=== PATIENT | male | born 1960 | race Caucasian/White ===

== ENCOUNTER 2023-03-09 08:38 | Inpatient (IN) | payer BC, SELFPAY ==
[2023-03-09] VITALS (119 sets, daily range): BP systolic 79–144; BP diastolic 54–100; PULSE 81–171; RESP 14–24; TEMP 36.9–37; O2SAT 89–98; BMI 28.7
--- NOTE | 2023-03-09 08:50 | XR_ITS ---
WS: [id number] XR chest 1V portable [id number] REASON FOR EXAM: cp FINDINGS: The heart and the mediastinum are within normal limits. There is calcified granulomatous disease in both hemithoraces. There is no acute or subacute pulmonary parenchymal or pleural process is present. The bony thorax is intact with mild degenerative spondylosis in the mid and lower thoracic spine. XR/XR chest 1V portable [id number] IMPRESSION: No acute chest abnormality.
--- NOTE | 2023-03-09 08:50 | ECG_ITS ---
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 Measurements Intervals [place] Rate: 150 P: 0 TN: 0 QRS: 63 QRSD: 82 T: 55 QT: 294 QTc: 464 Interpretive Statements ATRIAL FIBRILLATION WITH RAPID VENTRICULAR RESPONSE NONSPECIFIC ST & T-WAVE ABNORMALITY No previous ECG available for comparison Electronically Signed On 03-09-2023 12:13:57 CDT by Dean Castaneda M.D. [id number]
--- NOTE | 2023-03-09 08:59 | W.ED.ARRPALP ---
HPI - Arrhythmia/Palpitations General: Chief Complaint: Arrhythmia/Palpitations Stated Complaint: afib with rvr Time Seen by Provider: 03/09/23 08:40 Source: patient and EMS Mode of arrival: EMS Limitations: no limitations History of Present Illness: 62-year-old male states that he has been on alcohol binge. He states he is drinking very heavily over the last 2 weeks. States that today he started having fluttering he has had a history of A-fib in the past when he has been drinking his heart rate here is 170 he did receive 20 mg of Cardizem in route he states his last drink was 4 hours ago he had some slight chest pain denies any fevers. Associated symptoms: Deny nausea or vomiting Review of Systems Const: Denies: fever(s), chills, body aches or change in appetite Eyes: Denies: blurry vision or eye discomfort ENMT: Denies: throat pain or dental pain Card: Reports: chest pain, palpitations and irregular heart rhythm Resp: Denies: dyspnea GI: Denies: abdominal pain, nausea, vomiting or diarrhea Musc: Denies: neck pain or back pain Skin/Breast: Denies: rash Neuro: Denies: headache(s) Physical Exam Const: COMMON NORMALS: patient oriented x3 GENERAL APPEARANCE: ill appearing HENMT: COMMON NORMALS: normocephalic and atraumatic HEAD & SCALP: normocephalic and atraumatic Eye: COMMON NORMALS: Equal, round and reactive pupils present and EOMs intact bilaterally PUPIL: Yes Equal, round and reactive pupils present Neck/C-Spine: COMMON NORMALS: full ROM and supple Chest: COMMONS NORMALS: normal inspection of the chest and normal palpation of entire chest wall Resp: COMMON NORMALS: normal respiratory effort, No retractions, No use of accessory muscles and clear to auscultation bilaterally AUSCULTATION: clear to auscultation bilaterally Cardio: COMMON NORMALS: No murmurs present (Cardio) RATE: tachycardic RHYTHM: abnormal rhythm irregularly irregular GI: COMMON NORMALS: Normal to inspection, nondistended, normoactive bowel sounds present, Soft to palpation, non-tender and no masses PALPATION: Yes Soft to palpation Extremity: COMMON NORMALS: normal to inspection and full ROM Neuro: COMMON NORMALS: patient oriented x3, moves all extremities and no focal motor deficits Psych: COMMON NORMALS: mental status grossly normal, Normal thought process present and cooperative THOUGHT PROCESS: Normal thought process present Skin: COMMON NORMALS: no rashes or lesions noted and no wounds GENERAL SKIN EXAM: no rashes or lesions noted Course Vital Signs: Vital signs: Vital Signs Temperature 98.6 F 03/09/23 08:40 Pulse Rate 150 H 03/09/23 09:21 Respiratory Rate 19 H 03/09/23 09:21 Blood Pressure 144/100 03/09/23 09:21 Pulse Oximetry 97 03/09/23 09:21 Oxygen Delivery Me thod Room Air 03/09/23 09:21 MDM - Arrhythmia/Palpitations Medical Decision Making Patient presents here with A-fib with RVR likely from holiday heart and alcohol withdrawal he has been on a 8-day binge he does have a history of alcoholism as well did give him Ativan along with Cardizem he is on a Cardizem drip will admit to the ICU Medical Records I reviewed the patient's medical records. Lab Data I reviewed the patient's lab results. 03/09/23 08:50 03/09/23 08:50 Radiology Impressions Chest X-Ray 03/09/23 08:50 IMPRESSION: No acute chest abnormality. Laboratory Results WBC 15.6 10^3/uL (4.0-10.0) H 03/09/23 08:50 RBC 4.80 10^6/uL (4.1-5.3) 03/09/23 08:50 Hgb 14.6 g/dL (11.7-16.6) 03/09/23 08:50 Hct 42.7 % (42.0-52.0) 03/09/23 08:50 MCV 89.0 fl (80-94) 03/09/23 08:50 MCH 30.4 pg (28.0-34.0) 03/09/23 08:50 MCHC 34.2 g/dL (30.0-36.0) 03/09/23 08:50 RDW 13.4 % (12.1-15.1) 03/09/23 08:50 Plt Count 253 10^3/cmm (130-400) 03/09/23 08:50 MPV 9.9 fL (7.4-10.4) 03/09/23 08:50 Neut % (Auto) 75.0 % 03/09/23 08:50 Lymph % (Auto) 15.0 % 03/09/23 08:50 [place] % (Auto) 9.3 % 03/09/23 08:50 Eos % (Auto) 0.0 % 03/09/23 08:50 Baso % (Auto) 0.3 % 03/09/23 08:50 Neut # (Auto) 11.72 10^3/uL (1.8-7.7) H 03/09/23 08:50 Lymph # (Auto) 2.3 10^3/uL (0.8-4.8) 03/09/23 08:50 [place] # (Auto) 1.5 10^3/uL (0.2-0.9) H 03/09/23 08:50 Eos # (Auto) 0.0 10^3/uL (0.0-0.8) 03/09/23 08:50 Baso # (Auto) 0.1 10^3/uL (0.0-0.1) 03/09/23 08:50 Nucleated RBC % (auto) 0 % 03/09/23 08:50 Nucleated RBCs # 0.0 /100WBC 03/09/23 08:50 PT 13.70 SECONDS (12.1-14.9) 03/09/23 08:50 INR 1.02 (0.8-1.2) 03/09/23 08:50 Sodium 138 mmol/L (136-145) 03/09/23 08:50 Potassium 3.7 mmol/L (3.5-5.1) 03/09/23 08:50 Chloride 96 mmol/L (98-107) L 03/09/23 08:50 Carbon Dioxide 27 mmol/L (22-29) 03/09/23 08:50 Anion Gap 18.7 (5-19) 03/09/23 08:50 BUN 7 mg/dL (8-23) L 03/09/23 08:50 Creatinine 1.5 mg/dL (0.7-1.2) H 03/09/23 08:50 GFR Calculation 47.3 mL/min (90-130) L 03/09/23 08:50 Glucose 150 mg/dL (65-115) H 03/09/23 08:50 Calculated Osmolality 287 mOsm/kg (285-295) 03/09/23 08:50 Calcium 9.0 mg/dL (8.5-10.5) 03/09/23 08:50 Total Bilirubin 0.4 mg/dL (0.15-1.2) 03/09/23 08:50 AST 35 U/L (0-40) 03/09/23 08:50 ALT 21 U/L (0-41) 03/09/23 08:50 Alkaline Phosphatase 66 U/L (40-130) 03/09/23 08:50 Troponin T Baseline 28 ng/L (0-15) H 03/09/23 08:50 Total Protein 7.3 g/dL (6.6-8.7) 03/09/23 08:50 Albumin 4.4 g/dL (3.5-5.2) 03/09/23 08:50 Globulin 2.9 g/dL (1.3-4.6) 03/09/23 08:50 Ethyl Alcohol < 10 mg/dL (0-10) 03/09/23 08:50 EKG Data EKG 1: I personally reviewed and interpreted this EKG as follows: EKG interpretation date: 03/09/23 EKG interpretation time: 09:06 Interpretation: afib with rvr hr [address] or t wave abnormalities qrs 82 qtc 379 Other EKG comments: Chest X-Ray 03/09/23 08:50 IMPRESSION: No acute chest abnormality. Critical Care Time Critical Care Time: Critical Care Time: Yes Total Critical Care Time: 45 Attestation: The high probability of a clinically significant, sudden or life threatening deterioration of the patient's cv system(s) required my full and direct attention, intervention and personal management. The critical care time is as shown. This time is in addition to time spent performing any reported procedures but includes the following: [x] Data and vital sign review and interpretation [x] Patient assessment, examination and intervention [x] Documentation [x] Medication orders and management Discharge Plan Discharge Patient Disposition: Admitted As Inpatient Admit Provider: Micah Skelton Clinical Impression: Atrial fibrillation with RVR, Alcohol withdrawal Condition: Stable Coding Level of Care Code ED Rental Manager for Chg Taty
[2023-03-09] MEDS: sodium chloride 0.9% 1,000 ML 999 ML IV ×2 (09:02→09:03)
[2023-03-09] MEDS: dilTIAZem 5 mg/mL SDV 5 mL 10 MG IVP (09:04)
[2023-03-09 09:10] LABS: Basophils # 0.1 10^3/uL (0.0-0.1); Basophils % 0.3 %; Hematocrit 42.7 % (42.0-52.0); Hemoglobin 14.6 g/dL (11.7-16.6); Lymphocytes # 2.3 10^3/uL (0.8-4.8); Mean Corpuscular HGB Conc 34.2 g/dL (30.0-36.0); Mean Corpuscular Hemoglobin 30.4 pg (28.0-34.0); Mean Platelet Volume 9.9 fL (7.4-10.4); Monocytes # 1.5 10^3/uL (0.2-0.9); Monocytes % 9.3 %; Neutrophils # 11.72 10^3/uL (1.8-7.7); Nucleated Red Blood Cells % 0 %; Platelet Count 253 10^3/cmm (130-400); Red Cell Distribution Width 13.4 % (12.1-15.1); White Blood Count 15.6 10^3/uL (4.0-10.0)
[2023-03-09] MEDS: LORazepam 2 mg/mL INJ 1 mL 1 MG IVP (09:15)
[2023-03-09] MEDS: multivitamin therapeutic Tablet 1 TAB PO (09:16)
[2023-03-09] MEDS: dilTIAZem 100 MG in sodium chloride 0.9% (add-van) 100 ML IV ×2 (09:20→18:19)
[2023-03-09 09:26] LABS: INR 1.02 (0.8-1.2)
[2023-03-09 09:32] LABS: Troponin(5th) Baseline 28 ng/L (0-15)
[2023-03-09 09:35] LABS: Alanine Aminotransferase 21 U/L (0-41); Albumin Level 4.4 g/dL (3.5-5.2); Alkaline Phosphatase 66 U/L (40-130); Aspartate Amino Transferase 35 U/L (0-40); Blood Urea Nitrogen 7 mg/dL (8-23); Carbon Dioxide 27 mmol/L (22-29); Chloride 96 mmol/L (98-107); Globulin 2.9 g/dL (1.3-4.6); Glomerular Filtration Rate 47.3 mL/min (90-130); Glucose 150 mg/dL (65-115); Osmolality Calculated 287 mOsm/kg (285-295); Sodium 138 mmol/L (136-145); Total Bilirubin 0.4 mg/dL (0.15-1.2); Total Protein 7.3 g/dL (6.6-8.7)
[2023-03-09 09:43] LABS: Alcohol Level < 10 mg/dL (0-10); Anion Gap 18.7 (5-19); Potassium 3.7 mmol/L (3.5-5.1)
[2023-03-09] MEDS: LORazepam 2 mg/mL INJ 1 mL IVP (09:46)
[2023-03-09 10:20] LABS: Thyroid Stimulating Hormone 1.49 uIU/mL (0.27-4.20)
--- NOTE | 2023-03-09 10:20 | P.HP_ITS ---
Providers/Chief Complaint Admitting Physician: Micah Skelton MD Chief Complaint: afib with rvr History of Present Illness Fausto Richard is a 62 year old male presenting to the hospital with complaints of palpitations. He reports he is an alcoholic and has been drinking heavily lately. Last drink not long ago, typically vodka. He has a past history of atrial fibrillation, for which she is on sotalol. He reports he had not had an issue with it for long enough that he had been taken off his Eliquis. He does take an aspirin daily. He denies any blood in his stool or black tarry stools. He denies any chest discomfort. He reports he typically withdraws significantly from alcohol and is currently having hallucinations of a body dissolving when he closes his eyes. No recent fever or illnesses. He did have one episode of vomiting with his withdrawal. In the emergency department, he has received Cardizem bolus, and a Cardizem drip at 15 mg an hour. Heart rate is fluctuating between 1 40-1 90. Review of Systems General: Reports: 10 or more systems reviewed and unremarkable except in HPI and below Card: Reports: palpitations; Denies: chest pain Resp: Denies: dyspnea GI: Reports: nausea and vomiting; Denies: abdominal pain, hematemesis, hematochezia or melena Medications/Allergies Home Medications Medication Instructions Recorded Confirmed Last Taken Type aspirin 81 mg tablet,delayed 81 mg PO DAILY 03/09/23 03/09/23 Unknown History release cholecalciferol (vitamin D3) 25 25 mcg PO DAILY 03/09/23 03/09/23 Unknown History mcg (1,000 unit) chewable tablet (Vitamin D3) sotalol 80 mg tablet 80 mg PO DAILY 03/09/23 03/09/23 Unknown History vitamin E 268 mg (400 unit) capsule 268 mg PO DAILY 03/09/23 03/09/23 Unknown History Allergies Allergy/AdvReac Type Severity Reaction Status Date / Time No Known Allergies Allergy Unverified 03/09/23 10:20 PFSH Acute PFSH: Medical History (Updated 03/09/23 @ 10:26 by Micah Skelton MD) Alcoholism Atrial fibrillation Family History (Updated 03/09/23 @ 10:23 by Micah Skelton MD) Other Cancer Social History (Updated 03/09/23 @ 10:24 by Micah Skelton MD) Smoking and tobacco status: former smoker Alcohol intake: current Other [facility] information: Supplemental [facility] Information: Denies any surgeries Vitals/I&O/Wt Last Vital Signs Temp 98.6 F 03/09/23 08:40 Pulse 150 H 03/09/23 09:21 Resp 19 H 03/09/23 09:21 BP 144/100 03/09/23 09:21 Pulse Ox 97 03/09/23 09:21 O2 Del Method Room Air 03/09/23 09:21 03/08/23 03/09/23 03/09/23 22:59 06:59 14:59 Intake Total Balance Weight last 48 hrs Weight 90.718 kg Physical Exam Narrative: General exam demonstrates a tremulous white male, in no distress, conversant HEENT: Atraumatic and normocephalic. Oropharynx clear. Neck is supple no lymphadenopathy thyromegaly Cardiovascular irregular, irregular with accelerated rate. No murmur Lungs clear no wheezing or crackles Abdomen is soft, positive bowel sounds. No obvious organomegaly exam is deferred Extremities no cyanosis clubbing or edema, cap refill brisk Skin no rash Neuro no obvious focal deficits Data 03/09/23 08:50 03/09/23 08:50 Other Labs: EKG demonstrates atrial fibrillation with rapid ventricular rate, nonspecific ST-T wave changes. This is my reading personally. Chest x-ray which I reviewed demonstrates no infiltrate INR is normal LFTs are normal Troponin 28 initially Calcium, albumin normal I have ordered a TSH and magnesium level which were both normal Alcohol level less than 10 A&P Assessment and plan (1) Atrial fibrillation with RVR: Patient presents with atrial fibrillation with rapid ventricular rate. It is entirely possible this may be driven from his recent heavy alcohol intake and withdrawal He has been initiated on a Cardizem drip TSH and magnesium are normal, along with the rest of his electrolytes Continue Cardizem drip Treat his alcohol withdrawal, to see if heart rate lessens Consider other measures such as a dose of metoprolol IV, reinitiation of sotalol with higher dosage, or other treatments if heart rate does not decrease with treatment of alcohol withdrawal Full dose anticoagulation currently (2) Alcohol withdrawal: Significant tachycardia and hypertension and is tremulous patient with current delirium/hallucinations. High risk for worsening. Initiate CIWA protocol Add Precedex Thiamine, folate Ativan as needed Offer rehabilitation services (3) Acute kidney injury: Some degree of acute kidney injury currently Hydration Repeat creatinine tomorrow (4) Hyperglycemia: Check hemoglobin A1c Plan Other medical problems as outlined in past medical history Full code Lovenox will suffice for DVT prophylaxis Protonix for GI prophylaxis Attestations Medical Necessity Statement*: Will require greater than 2 midnight stay for evaluation and treatment of acute alcohol withdrawal with atrial fibrillation with rapid ventricular rate. Critical Care Time: The high probability of a clinically significant, sudden or life threatening deterioration of the patient's [cardiac, metabolic] system(s) required my full and direct attention, intervention and personal management. The critical care time is as shown. This time is in addition to time spent performing any reported procedures but includes the following: [x] Data and vital sign review and interpretation [x] Patient assessment, examination and intervention [x] Documentation [x] Medication orders and management Critical Care Time (min): 49 Coding Level of Care Code Critical Care >/= 30 minutes Critical care time (in minutes): 49 The high probability of a clinically significant, sudden or life threatening deterioration, as referenced in this documentation, required my full and direct attention, intervention and personal management. The critical care time shown is in addition to time spent performing any reported separately billable procedures and includes the following: [x] Data and vital sign review and interpretation [x ] Patient assessment, examination and intervention [x] Medication orders and management [x] Patient/Family updates as able [x] Care Coordination and Documentation. Diagnoses Atrial fibrillation with RVR I48.91 Alcohol withdrawal F10.939 Acute kidney injury N17.9 Hyperglycemia R73.9
[2023-03-09] MEDS: sodium chloride 0.9% 1,000 ML 100 ML IV ×2 (10:50→20:56)
[2023-03-09] MEDS: pantoprazole 40 mg SDV IVP (10:50)
[2023-03-09] MEDS: enoxaparin 100 mg/mL Syringe 90 MG SUBCUT ×2 (10:50→23:01)
[2023-03-09] MEDS: dexmedetomidine 400 MCG in sodium chloride 0.9% (100 ml) 100 ML IV (11:06)
[2023-03-09 11:28] LABS: Estmated Average Glucose 123; Hemoglobin A1C 5.9 % (4.0-6.0)
--- NOTE | 2023-03-09 12:22 | ECG_ITS ---
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 Measurements Intervals [place] Rate: 130 P: 0 OK: 0 QRS: 40 QRSD: 87 T: -28 QT: 312 QTc: 459 Interpretive Statements ATRIAL FIBRILLATION WITH RAPID VENTRICULAR RESPONSE NONSPECIFIC T-WAVE ABNORMALITY Compared to ECG 03/09/2023 09:06:13 No significant changes Electronically Signed On 03-09-2023 12:23:14 CDT by Dena Castaneda M.D. [id number]
[2023-03-09 15:37] LABS: Troponin 5 6HR 21.98 ng/L (0-15)
--- NOTE | 2023-03-09 15:38 | ECG_ITS ---
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 Measurements Intervals [place] Rate: 114 P: 0 OK: 0 QRS: 41 QRSD: 104 T: -14 QT: 305 QTc: 422 Interpretive Statements ATRIAL FIBRILLATION WITH RAPID VENTRICULAR RESPONSE NONSPECIFIC T-WAVE ABNORMALITY Compared to ECG 03/09/2023 12:22:48 No significant changes Electronically Signed On 03-09-2023 15:50:45 CDT by Dean Castaneda M.D. [id number]
[2023-03-09 15:40] LABS: Troponin 5 6HR Delta -6.02 ng/L (0-12)
[2023-03-09] MEDS: sotalol 80 mg Tablet PO (17:13)
--- NOTE | 2023-03-09 21:20 | PC.NURSE ---
Pr is requesting food. Spoke to Dr. Parker about diet order. New order to advance diet as tolerated.
[2023-03-10] VITALS (93 sets, daily range): BP systolic 73–152; BP diastolic 36–104; PULSE 86–119; RESP 9–29; TEMP 36.4–37; O2SAT 82–99; BMI 30.9
[2023-03-10] MEDS: dexmedetomidine 400 MCG in sodium chloride 0.9% (100 ml) 100 ML 9.44 MCG IV (01:17)
[2023-03-10 04:59] LABS: Basophils % 0.3 %; Eosinophils # 0.1 10^3/uL (0.0-0.8); Hematocrit 34.2 % (42.0-52.0); Hemoglobin 10.8 g/dL (11.7-16.6); Lymphocytes # 2.4 10^3/uL (0.8-4.8); Lymphocytes % 39.1 %; Mean Corpuscular HGB Conc 31.6 g/dL (30.0-36.0); Mean Corpuscular Hemoglobin 29.8 pg (28.0-34.0); Mean Corpuscular Volume 94.5 fl (80-94); Mean Platelet Volume 10.3 fL (7.4-10.4); Monocytes # 0.5 10^3/uL (0.2-0.9); Monocytes % 8.4 %; Neutrophils # 3.09 10^3/uL (1.8-7.7); Nucleated Red Blood Cells % 0 %; Platelet Count 164 10^3/cmm (130-400); Red Blood Count 3.62 10^6/uL (4.1-5.3); Red Cell Distribution Width 14.1 % (12.1-15.1); White Blood Count 6.1 10^3/uL (4.0-10.0)
--- NOTE | 2023-03-10 05:03 | PC.NURSE ---
Addendum entered by Delmy Calixto RN 03/10/23 05:43: Spoke to Dr. Parker on phone about 80mg Sotalol. Order to not give 80mg Sotalol and pass along to dayshift. Original Note: Low BP's: Spoke to Dr. Parker via secured messaging about 80mg Sotalol ordered for 529. Updated Dr. Parker on current vitals, including low BP's. No new orders at this time.
[2023-03-10 05:28] LABS: Alanine Aminotransferase 15 U/L (0-41); Albumin Level 3.2 g/dL (3.5-5.2); Alkaline Phosphatase 46 U/L (40-130); Anion Gap 11.9 (5-19); Aspartate Amino Transferase 20 U/L (0-40); Blood Urea Nitrogen 7 mg/dL (8-23); Calcium 7.9 mg/dL (8.5-10.5); Carbon Dioxide 26 mmol/L (22-29); Chloride 105 mmol/L (98-107); Globulin 2.4 g/dL (1.3-4.6); Glomerular Filtration Rate 55.8 mL/min (90-130); Glucose 117 mg/dL (65-115); Magnesium 2.2 mg/dL (1.7-2.3); Osmolality Calculated 287 mOsm/kg (285-295); Potassium 3.9 mmol/L (3.5-5.1); Sodium 139 mmol/L (136-145); Total Bilirubin 0.3 mg/dL (0.15-1.2); Total Protein 5.6 g/dL (6.6-8.7)
[2023-03-10] MEDS: sodium chloride 0.9% 1,000 ML 100 ML IV ×2 (06:32→17:39)
[2023-03-10] MEDS: multivitamin therapeutic Tablet 1 TAB PO (09:03)
[2023-03-10] MEDS: folic acid 1 mg Tablet PO (09:03)
[2023-03-10] MEDS: thiamine 100 mg Tablet PO (09:03)
[2023-03-10] MEDS: pantoprazole 40 mg SDV IVP (09:03)
--- NOTE | 2023-03-10 09:25 | PM.PN ---
Subjective Subjective: Fausto feels better. He would like his diet advanced. No abdominal pain. Less shaky. Medications: Reviewed: Yes Vitals/I&O/Wt Last Vital Signs Temp 97.9 F 03/10/23 09:00 Pulse 95 03/10/23 09:00 Resp 28 H 03/10/23 09:00 BP 92/71 03/10/23 09:00 Pulse Ox 96 03/10/23 08:45 O2 Del Method Room Air 03/10/23 06:15 03/09/23 03/10/23 03/10/23 22:59 06:59 14:59 Intake Total 1688.974 / 3764.493 1036.703 / 4801.196 240 / 240 Output Total 650 / 650 Balance 1688.974 / 3764.493 386.703 / 4151.196 240 / 240 Weight last 48 hrs Weight 97.749 kg Weight 90.718 kg Physical Exam Narrative: General exam no distress. Still on Precedex. Neck is supple no lymphadenopathy thyromegaly Cardiovascular irregular, irregular with accelerated rate. No murmur Lungs clear no wheezing or crackles Abdomen is soft, positive bowel sounds. No obvious organomegaly Extremities no cyanosis clubbing or edema, cap refill brisk Skin no rash Neuro no obvious focal deficits Data 03/10/23 03:35 03/10/23 03:35 A&P Assessment and plan (1) Atrial fibrillation with RVR: Patient presents with atrial fibrillation with rapid ventricular rate. It is entirely possible this may be driven from his recent heavy alcohol intake and withdrawal He has been initiated on a Cardizem drip. This is now been discontinued. He is still in atrial fibrillation with heart rate around 100. TSH and magnesium are normal, along with the rest of his electrolytes His sotalol has been increased to 80 mg twice daily Continue full dose anticoagulation Check echocardiogram (2) Alcohol withdrawal: Continue CIWA protocol Try to wean Precedex Continue thiamine, folate Ativan as needed Offer rehabilitation services (3) Acute kidney injury: Some degree of acute kidney injury currently Hydration Renal function improving CBC, BMP tomorrow (4) Hyperglycemia: Hemoglobin A1c not elevated Plan Other medical problems as outlined in past medical history Full code Lovenox will suffice for DVT prophylaxis Protonix for GI prophylaxis Attestations Medical Necessity Statement*: Needs continued hospital stay, for treatment of alcohol withdrawal and adjustment, close monitoring of atrial fibrillation with rapid ventricular rate as sotalol dose was increased Diagnoses Atrial fibrillation with RVR I48.91 Alcohol withdrawal F10.939 Acute kidney injury N17.9 Hyperglycemia R73.9 Time Spent (min) 31
--- NOTE | 2023-03-10 09:28 | USCV_ITS ---
Fausto Garrido Age: 62 Gender: M : 1960 Exam Date: 03/10/2023 19:49 Ordering Phys: Micah Skelton MD Technologist: HU [place] [facility] [place]: [place] BP: / HR: 101 Rhythm: Sinus Technical Quality: Adequate MEASUREMENTS (Male / Female) Normal Values 2D ECHO LV Diastolic Diameter PLAX 5.6 cm 4.2 - 5.9 / 3.9 - 5.3 cm LV Systolic Diameter PLAX 4.3 cm IVS Diastolic Thickness 0.7 cm 0.6 - 1.0 / 0.6 - 0.9 cm IVS Systolic Thickness 1.2 cm LVPW Diastolic Thickness 0.8 cm 0.6 - 1.0 / 0.6 - 0.9 cm LVPW Systolic Thickness 0.9 cm LVOT Diameter 2.1 cm LV Ejection Fraction 2D Teich 46.7 % LV Ejection Fraction MOD 2C 50.6 % LV Ejection Fraction 2C AL 51.6 % LA Diameter 4.2 cm IVC Diameter 2.7 cm M-MODE Aortic Annulus Diameter 3.2 cm LA Ao Ratio MM 1.5 MV E Point Septal Separation 0.5 cm DOPPLER AV Peak Velocity 101.0 cm/s LVOT Peak Velocity 97.0 cm/s AV Area Cont Eq vti 2.7 cm squared AV Area Cont Eq pk 3.4 cm squared MV Area PHT 4.0 cm squared Mitral E to A Ratio 2.5 MV E' Velocity 50.5 cm/s Mitral E to MV E' Ratio 6.1 Mitral E to LV E' Lateral Ratio 5.4 Mitral E to LV E' Septal Ratio 7.0 FINDINGS Left Ventricle The ventricle is poorly seen due to the atrial fibrillation and rapid ventricular response. Overall there is probably normal LV function. Wall motion disturbances cannot be determined. Because of the irregular rate, diastolic function cannot be determined. Ejection fraction is probably within normal limits. Right Ventricle Normal right ventricular size and systolic function. Right Atrium The right atrium is normal in size. Left Atrium The left atrium is normal in size. Mitral Valve Structurally normal mitral valve. Trace mitral valve regurgitation. Aortic Valve Structurally normal aortic valve without significant sclerosis or stenosis. There is no aortic regurgitation. Tricuspid Valve Structurally normal tricuspid valve without significant stenosis or regurgitation. Pulmonary artery systolic pressure is normal. Pulmonic Valve Pulmonic valve not well visualized. Pericardium Normal pericardium without effusion. Aorta Normal ascending aorta dimension. IVC Inferior vena cava not visualized. CONCLUSIONS The ventricle is poorly seen due to the atrial fibrillation and rapid ventricular response. Overall there is probably normal LV function. Wall motion disturbances cannot be determined. Because of the irregular rate, diastolic function cannot be determined. Ejection fraction is probably within normal limits. Structurally normal mitral valve. Trace mitral valve regurgitation. There are no prior echocardiogram studies to compare. Dr. Yosef Stewart MD (Electronically Signed) Final Date: 11 March 2023 10:50 S
--- NOTE | 2023-03-10 09:45 | PC.NURSE ---
Transfer Note Patient transferred to med-surg 250-1 from ICU via bed. Handoff report given to AJ Mathew. Patient transferred on 3LNC, TPN infusing per order please see MAR for detail. Patient oriented to environment and equipment. Covering service notified. Orders reviewed and will continue to monitor. Family and advertising representative notified. All patient belongings transferred and placed at bedside.
[2023-03-10] MEDS: enoxaparin 100 mg/mL Syringe 90 MG SUBCUT ×2 (10:25→22:05)
[2023-03-10] MEDS: sotalol 80 mg Tablet PO ×2 (11:40→17:39)
--- NOTE | 2023-03-10 18:20 | PC.NURSE ---
Transfer Note Patient transferred to CSU room 112-1 from ICU via wheelchair. Handoff report given to AJ Zheng. Patient oriented to environment and equipment. Covering service notified. Orders reviewed and will continue to monitor. Family notified. All patient belongings transferred with patient and placed at bedside. Upon transfer patient is alert/oriented x4 on room air, NS infusing per order.
[2023-03-11] VITALS (26 sets, daily range): BP systolic 128–152; BP diastolic 81–109; PULSE 93–124; RESP 14–26; TEMP 36.8–37.3; O2SAT 90–99
[2023-03-11] MEDS: sodium chloride 0.9% 1,000 ML 100 ML IV (03:20)
[2023-03-11 03:37] LABS: Basophils % 0.4 %; Eosinophils # 0.1 10^3/uL (0.0-0.8); Eosinophils % 0.8 %; Hematocrit 40.1 % (42.0-52.0); Lymphocytes # 2.8 10^3/uL (0.8-4.8); Lymphocytes % 25.2 %; Mean Corpuscular HGB Conc 32.4 g/dL (30.0-36.0); Mean Corpuscular Hemoglobin 30.9 pg (28.0-34.0); Mean Corpuscular Volume 95.2 fl (80-94); Mean Platelet Volume 9.5 fL (7.4-10.4); Monocytes # 0.7 10^3/uL (0.2-0.9); Monocytes % 6.7 %; Neutrophils # 7.36 10^3/uL (1.8-7.7); Neutrophils % 66.4 %; Nucleated Red Blood Cells % 0 %; Platelet Count 187 10^3/cmm (130-400); Red Blood Count 4.21 10^6/uL (4.1-5.3); Red Cell Distribution Width 13.9 % (12.1-15.1); White Blood Count 11.1 10^3/uL (4.0-10.0)
[2023-03-11 03:50] LABS: Alanine Aminotransferase 24 U/L (0-41); Albumin Level 3.8 g/dL (3.5-5.2); Alkaline Phosphatase 67 U/L (40-130); Anion Gap 12.5 (5-19); Aspartate Amino Transferase 32 U/L (0-40); Blood Urea Nitrogen 8 mg/dL (8-23); Calcium 8.8 mg/dL (8.5-10.5); Carbon Dioxide 28 mmol/L (22-29); Chloride 105 mmol/L (98-107); Globulin 2.9 g/dL (1.3-4.6); Glomerular Filtration Rate 61.1 mL/min (90-130); Glucose 91 mg/dL (65-115); Osmolality Calculated 292 mOsm/kg (285-295); Potassium 3.5 mmol/L (3.5-5.1); Sodium 142 mmol/L (136-145); Total Bilirubin 0.3 mg/dL (0.15-1.2); Total Protein 6.7 g/dL (6.6-8.7)
[2023-03-11] MEDS: sotalol 80 mg Tablet PO ×2 (05:24→17:30)
--- NOTE | 2023-03-11 08:06 | ECG_ITS ---
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 Measurements Intervals [place] Rate: 111 P: 0 HI: 0 QRS: 38 QRSD: 91 T: 10 QT: 347 QTc: 472 Interpretive Statements ATRIAL FIBRILLATION WITH RAPID VENTRICULAR RESPONSE NONSPECIFIC T-WAVE ABNORMALITY ABNORMAL RHYTHM ECG No previous ECG available for comparison Electronically Signed On 03-11-2023 11:14:48 CDT by Yosef Stewart M.D. [id number]
[2023-03-11] MEDS: thiamine 100 mg Tablet PO (08:15)
[2023-03-11] MEDS: folic acid 1 mg Tablet PO (08:15)
[2023-03-11] MEDS: multivitamin therapeutic Tablet 1 TAB PO (08:15)
[2023-03-11] MEDS: pantoprazole DR 40 mg Tablet PO (08:15)
[2023-03-11] MEDS: aspirin 81 mg EC Tablet PO (08:15)
--- NOTE | 2023-03-11 10:25 | P.CONIM_ITS ---
Providers/Reason For Consult Consulting Physician/Specialty*: Cardiovascular medicine Reason for Consult*: Recurrent atrial fibrillation Requesting Physician: Hospitalist Attending Physician: Arcadio Honeycutt MD History of Present Illness History of Present Illness Fausto Garrido is a 62 year old male with a history of alcoholism. With the alcoholism he had atrial fibrillation. He managed to stop drinking and about a year ago he went into sinus rhythm while being treated with sotalol. He sees an political organizer in [facility]. Because he was in sinus rhythm he was taken off his Eliquis. Unfortunately he slipped up a week or 10 days ago and went back to drinking. As a result of this he ended up back in atrial fibrillation. He was admitted here 2 days ago with rapid ventricular rate. He has had some alcohol withdrawal but that seems to have cleared. He is lucid today. He is on Lovenox and has been placed back on sotalol 80 mg twice a day. He thinks that perhaps his sotalol dose was 40 mg twice a day but I doubt this. He also has mild glucose intolerance. When he was admitted his creatinine was 1.5. It is now down to 1.2. He had been on a Cardizem drip but that has been discontinued. He feels fine today but recognizes he is back in atrial fibrillation and understands the reason for this. Review of Systems Narrative: Review of systems is negative Medications/Allergies Home Medications Medication Instructions Recorded Confirmed Last Taken Type aspirin 81 mg tablet,delayed 81 mg PO DAILY 03/09/23 03/09/23 Unknown History release cholecalciferol (vitamin D3) 25 25 mcg PO DAILY 03/09/23 03/09/23 Unknown History mcg (1,000 unit) chewable tablet (Vitamin D3) sotalol 80 mg tablet 80 mg PO DAILY 03/09/23 03/09/23 Unknown History vitamin E 268 mg (400 unit) capsule 268 mg PO DAILY 03/09/23 03/09/23 Unknown History Allergies Allergy/AdvReac Type Severity Reaction Status Date / Time No Known Allergies Allergy Unverified 03/09/23 10:20 Current Medications Generic Name Dose Route Start Last Admin Trade Name Freq PRN Reason Stop Dose Admin Aspirin 81 mg 03/11/23 09:00 03/11/23 08:15 Aspirin 81 Mg Ec Tablet PO 81 mg DAILY ELIANA Administration Enoxaparin Sodium 90 mg 03/09/23 10:45 03/10/23 22:05 Enoxaparin 100 Mg/Ml Syringe SUBCUT 90 mg Q12H ELIANA Administration Folic Acid 1 mg 03/10/23 09:00 03/11/23 08:15 Folic Acid 1 Mg Tablet PO 1 mg DAILY ELIANA Administration Multivitamins Therapeutic 1 tab 03/10/23 09:00 03/11/23 08:15 Multivitamin Therapeutic Tablet PO 1 tab DAILY ELIANA Administration Pantoprazole Sodium 40 mg 03/11/23 09:00 03/11/23 08:[address] 40 Mg Tablet PO 40 mg DAILY ELIANA Administration Sotalol HCl 80 mg 03/09/23 17:30 03/11/23 05:24 Sotalol 80 Mg Tablet PO 80 mg Q12H ELIANA Administration Thiamine Mononitrate 100 mg 03/10/23 09:00 03/11/23 08:15 Thiamine 100 Mg Tablet PO 100 mg DAILY ELIANA Administration PFSH Acute PFSH: Medical History (Updated 03/09/23 @ 10:26 by Micah Skelton MD) Alcoholism Atrial fibrillation Family History (Updated 03/09/23 @ 10:23 by Micah Skelton MD) Other Cancer Social History (Updated 03/09/23 @ 10:24 by Micah Skelton MD) Smoking and tobacco status: former smoker Alcohol intake: current Vitals/I&O/Wt Last Vital Signs Temp 99.1 F 03/11/23 08:00 Pulse 97 03/11/23 08:00 Resp 21 H 03/11/23 08:00 BP 128/81 03/11/23 08:00 Pulse Ox 94 03/11/23 08:00 O2 Del Method Room Air 03/11/23 08:00 03/10/23 03/11/23 03/11/23 22:59 06:59 14:59 Intake Total 1720 / 2224.623 968.333 / 3192.956 360 / 360 Balance 1720 / 2224.623 968.333 / 3192.956 360 / 360 Weight last 48 hrs Weight 154 lb 6.4 oz Weight 215 lb 8 oz Physical Exam Narrative: GENERAL: In general he looks and feels well HEENT: Exam within normal limits. NECK: Supple without jugular vein distention. The carotid upstroke is normal without bruits. BACK: Exam normal. LUNGS: Clear. HEART: Irregular rate and rhythm ABDOMEN: Benign without organomegaly or tenderness. EXTREMITIES: No edema. NEUROLOGIC: Exam normal. SKIN: Unremarkable. Data 03/11/23 03:26 03/11/23 03:26 A&P Assessment and plan (1) Hyperglycemia: (2) Acute kidney injury: (3) Atrial fibrillation with RVR: (4) Alcohol withdrawal: Plan The atrial fibrillation is obviously caused by the reinstitution of alcoholic beverages. I gave him 2 choices. One would be to continue the sotalol, restart the Eliquis and send him home as long as he is stable. He can then contact his political organizer for further consideration of either cardioversion or even ablation. The other option would be to cardiovert him here. I worry a little bit about that because we do not know the duration of the atrial fibrillation and he was not on an anticoagulant when he came in. Right now he is leaning toward restarting the sotalol and Eliquis and being discharged when he is stable to follow-up in [place]. I will reassess this with him in the morning. Consult Attestations Medical Necessity Statement: Hospitalization for treatment of atrial fibrillation. and Moderate Time for a total of 40 minutes, includes reviewing past or interval history, examining/interviewing patient, counseling patient/family/other support, updating patient/family/other support, discussing plan of care with staff, communicating with other healthcare providers, documenting encounter and coordinating care Diagnoses Hyperglycemia R73.9 Acute kidney injury N17.9 Atrial fibrillation with RVR I48.91 Alcohol withdrawal F10.939
--- NOTE | 2023-03-11 12:51 | P.PN_ITS ---
Subjective Subjective: Patient was seen this morning, he denies any chest pain, no shortness of breath, his heart rates do go into the 120s, with exertion, no fevers, no chills Vitals/I&O/Wt Last Vital Signs Temp 98.6 F 03/11/23 11:55 Pulse 106 H 03/11/23 11:55 Resp 19 H 03/11/23 11:55 BP 134/84 03/11/23 11:55 Pulse Ox 95 03/11/23 11:55 O2 Del Method Room Air 03/11/23 11:55 03/10/23 03/11/23 03/11/23 22:59 06:59 14:59 Intake Total 1720 / 2224.623 968.333 / 3192.956 360 / 360 Balance 1720 / 2224.623 968.333 / 3192.956 360 / 360 Weight last 48 hrs Weight 70.035 kg Weight 97.749 kg Physical Exam Const: COMMON NORMALS: no acute distress and patient oriented x3 Resp: COMMON NORMALS: normal respiratory effort, No retractions, No use of accessory muscles and clear to auscultation bilaterally AUSCULTATION: clear to auscultation bilaterally Cardio: COMMON NORMALS: S1 normal heart sound present and S2 normal heart so und present RATE: tachycardic RHYTHM: abnormal rhythm HEART SOUNDS: S1 normal heart sound present and S2 normal heart sound present GI: COMMON NORMALS: Normal to inspection, nondistended, normoactive bowel sounds present and non-tender Extremity: COMMON NORMALS: no pedal edema Neuro: COMMON NORMALS: patient oriented x3 Psych: COMMON NORMALS: mental status grossly normal Data 03/11/23 03:26 03/11/23 03:26 EKG 4: My Interpretation: A-fib with RVR A&P Assessment and plan (1) Atrial fibrillation with RVR: Continues to have episodes of A-fib with RVR Etiology could be his recent alcohol consumption Currently on sotalol 80 twice daily Spoke to cardiology, Dr. Mayer, will consult Continue full dose anticoagulation Check echocardiogram (2) Alcohol withdrawal: Continue CIWA protocol Off Precedex Continue thiamine, folate Ativan as needed Offer rehabilitation services (3) Acute kidney injury: Resolved (4) Hyperglycemia: Hemoglobin A1c not elevated Plan Other medical problems as outlined in past medical history Full code Lovenox will suffice for DVT prophylaxis Protonix for GI prophylaxis Plan for today, continue to monitor heart rate continue sotalol, repeat EKG to monitor QTc monitor kidney function, spoke to Dr. Stewart, will consult due to persistent A-fib with RVR, monitor for alcohol withdrawal Attestations Medical Necessity Statement*: Patient requires hospitalization for A-fib with RVR, alcohol withdrawal Diagnoses Atrial fibrillation with RVR I48.91 Alcohol withdrawal F10.939 Acute kidney injury N17.9 Hyperglycemia R73.9
--- NOTE | 2023-03-11 20:45 | PC.NURSE ---
Spoke with regrading patient request for something to help him sleep. ordered one time dose of ambien 2.5mg.
[2023-03-11] MEDS: apixaban 5 mg Tablet PO (21:39)
[2023-03-11] MEDS: zolpidem 5 mg Tablet 2.5 MG PO (22:05)
[2023-03-12] VITALS (9 sets, daily range): BP systolic 140–164; BP diastolic 76–118; PULSE 108–135; RESP 12–21; TEMP 36.9–37.1; O2SAT 93–98
[2023-03-12] MEDS: LORazepam 2 mg Tablet PO (02:52)
[2023-03-12 03:13] LABS: Basophils % 0.2 %; Eosinophils # 0.2 10^3/uL (0.0-0.8); Eosinophils % 1.9 %; Hematocrit 35.2 % (42.0-52.0); Hemoglobin 11.5 g/dL (11.7-16.6); Lymphocytes # 1.8 10^3/uL (0.8-4.8); Lymphocytes % 21.1 %; Mean Corpuscular HGB Conc 32.7 g/dL (30.0-36.0); Mean Corpuscular Hemoglobin 30.3 pg (28.0-34.0); Mean Corpuscular Volume 92.9 fl (80-94); Mean Platelet Volume 10.4 fL (7.4-10.4); Monocytes # 0.6 10^3/uL (0.2-0.9); Monocytes % 6.7 %; Neutrophils # 5.97 10^3/uL (1.8-7.7); Neutrophils % 69.9 %; Nucleated Red Blood Cells % 0 %; Platelet Count 160 10^3/cmm (130-400); Red Blood Count 3.79 10^6/uL (4.1-5.3); Red Cell Distribution Width 13.5 % (12.1-15.1); White Blood Count 8.5 10^3/uL (4.0-10.0)
[2023-03-12 03:31] LABS: Anion Gap 12.3 (5-19); Blood Urea Nitrogen 7 mg/dL (8-23); Calcium 8.4 mg/dL (8.5-10.5); Carbon Dioxide 26 mmol/L (22-29); Chloride 101 mmol/L (98-107); Glomerular Filtration Rate 85.2 mL/min (90-130); Glucose 102 mg/dL (65-115); Osmolality Calculated 280 mOsm/kg (285-295); Potassium 3.3 mmol/L (3.5-5.1); Sodium 136 mmol/L (136-145)
[2023-03-12 03:34] LABS: Magnesium 1.8 mg/dL (1.7-2.3)
[2023-03-12] MEDS: sotalol 80 mg Tablet PO (05:19)
--- NOTE | 2023-03-12 06:44 | P.PN_ITS ---
Subjective Subjective: Fausto has remained in atrial fibrillation overnight. His heart rates are running about 115-120. He is asymptomatic. I started him on Eliquis yesterday. We waited until the nighttime dose of Eliquis was given to hold the Lovenox. This morning he has no symptoms. Once again I discussed with him the options for treatment Vitals/I&O/Wt Last Vital Signs Temp 98.7 F 03/12/23 00:00 Pulse 128 H 03/12/23 05:59 Resp 15 03/12/23 04:00 BP 140/76 03/12/23 04:00 Pulse Ox 98 03/12/23 04:00 O2 Del Method Room Air 03/12/23 04:00 03/11/23 03/11/23 03/12/23 14:59 22:59 06:59 Intake Total 840 / 840 1120 / 1960 460 / 2420 Balance 840 / 840 1120 / 1960 460 / 2420 Weight last 48 hrs Weight 154 lb 6.4 oz Weight 215 lb 8 oz Physical Exam Narrative: GENERAL: General he looks comfortable HEENT: Exam within normal limits. NECK: Supple without jugular vein distention. The carotid upstroke is normal without bruits. BACK: Exam normal. LUNGS: Clear. HEART: Irregular rate and rhythm tachycardia ABDOMEN: Benign without organomegaly or tenderness. EXTREMITIES: No edema. NEUROLOGIC: Exam normal. SKIN: Unremarkable. 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 Because his heart rate is elevated I have added metoprolol 25 mg twice daily. He should go home on sotalol 80 mg twice a day, aspirin 81 mg daily, Eliquis 5 mg twice daily and metoprolol tartrate 25 mg twice daily. I have instructed him to see his battalion fire chief in [place] as soon as possible. Attestations Medical Necessity Statement*: Okay to discharge today. and Moderate Time for a total of 30 minutes, includes reviewing past or interval history, examining/interviewing patient, placing orders, updating patient/family/other support, discussing plan of care with staff and documenting encounter Diagnoses Hyperglycemia R73.9 Atrial fibrillation with RVR I48.91 Alcohol withdrawal F10.939
[2023-03-12] MEDS: magnesium lactate 84 mg Tablet PO (09:00)
[2023-03-12] MEDS: metoprolol tartrate 25 mg Tablet PO ×2 (09:00→11:25)
[2023-03-12] MEDS: potassium chloride ER 20 mEq Tablet 40 MEQ PO (09:00)
[2023-03-12] MEDS: apixaban 5 mg Tablet PO (09:00)
[2023-03-12] MEDS: aspirin 81 mg EC Tablet PO (09:00)
[2023-03-12] MEDS: pantoprazole DR 40 mg Tablet PO (09:01)
[2023-03-12] MEDS: thiamine 100 mg Tablet PO (09:01)
[2023-03-12] MEDS: folic acid 1 mg Tablet PO (09:01)
[2023-03-12] MEDS: multivitamin therapeutic Tablet 1 TAB PO (09:01)
--- NOTE | 2023-03-12 11:23 | P.DS_ITS ---
Discharge Providers Date of Admission: 03/09/23 09:49 Date of Discharge: March 12, 2023 Attending Provider at Admission: Micah Skelton MD Attending Provider at Discharge: Arcadio Honeycutt MD Diagnoses at Discharge Discharge Diagnosis (1) Hyperglycemia: Status: Acute (2) Atrial fibrillation with RVR: Status: Acute (3) Alcohol withdrawal: Status: Acute Reason for Visit Reason for Visit: afib with rvr Hospital Course Hospital Course Fausto Richard is a 62 year old male presenting to the hospital with complaints of palpitations.? He reports he is an alcoholic and has been drinking heavily lately.? Last drink not long ago, typically vodka.? He has a past history of atrial fibrillation, for which she is on sotalol.? He reports he had not had an issue with it for long enough that he had been taken off his Eliquis.? He does take an aspirin daily.? He denies any blood in his stool or black tarry stools.? He denies any chest discomfort.? He reports he typically withdraws significantly from alcohol and is currently having hallucinations of a body dissolving when he closes his eyes.? No recent fever or illnesses.? He did have one episode of vomiting with his withdrawal. In the emergency department, he has received Cardizem bolus, and a Cardizem drip at 15 mg an hour.? Heart rate is fluctuating between 1 40-1 90. Patient was admitted to [facility] for A-fib with RVR, and alcohol withdrawal, managed with Cardizem drip, WA protocol, due to persistent A-fib with increased dose of sotalol to 80 twice daily cardiology was consulted, he was monitored, as inpatient, started on metoprolol, discharged on metoprolol 50 twice daily. Patient had extensive discussion with cardiology, about possible cardioversion, he is decided to follow-up with his wellness health coach in [place]. Patient was advised if he were to have any chest pain or palpitations, emergency room, to follow-up with his wellness health coach in [place] within the next 48 hours. Discharged on sotalol 80 twice daily, Eliquis 5 twice daily, metoprolol 50 twice daily. Patient was advised to abstain from alcohol consumption Physical Exam Const: COMMON NORMALS: no acute distress and patient oriented x3 Resp: COMMON NORMALS: normal respiratory effort, No retractions, No use of accessory muscles and clear to auscultation bilaterally AUSCULTATION: clear to auscultation bilaterally Cardio: COMMON NORMALS: S1 normal heart sound present and S2 normal heart sound present RATE: tachycardic RHYTHM: abnormal rhythm regularly irregul ar HEART SOUNDS: S1 normal heart sound present and S2 normal heart sound present GI: COMMON NORMALS: Normal to inspection, nondistended, normoactive bowel sounds present and non-tender Extremity: COMMON NORMALS: no pedal edema Neuro: COMMON NORMALS: patient oriented x3 Psych: COMMON NORMALS: mental status grossly normal Discharge Data Studies Completed and Pending Completed Studies During Hospitalization Category Date Time Status XR chest 1V portable [id number] Stat Exams 03/09/23 08:50 Completed CV. echo complete* [id number] Routine Ultrasound 03/10/23 09:28 Completed Pending at discharge Category Date Time Status Basic Metabolic Panel AM LABS Lab 03/13/23 04:00 Ordered Basic Metabolic Panel AM LABS Lab 03/14/23 04:00 Ordered Complete Blood Count w/Auto AM LABS Lab 03/13/23 04:00 Ordered Complete Blood Count w/Auto AM LABS Lab 03/14/23 04:00 Ordered Magnesium AM LABS Lab 03/13/23 04:00 Ordered Magnesium AM LABS Lab 03/14/23 04:00 Ordered Radiology Impressions Chest X-Ray 03/09/23 08:50 IMPRESSION: No acute chest abnormality. Laboratory Results WBC 8.5 10^3/uL (4.0-10.0) 03/12/23 02:32 RBC 3.79 10^6/uL (4.1-5.3) L 03/12/23 02:32 Hgb 11.5 g/dL (11.7-16.6) L 03/12/23 02:32 Hct 35.2 % (42.0-52.0) L 03/12/23 02:32 MCV 92.9 fl (80-94) 03/12/23 02:32 MCH 30.3 pg (28.0-34.0) 03/12/23 02:32 MCHC 32.7 g/dL (30.0-36.0) 03/12/23 02:32 RDW 13.5 % (12.1-15.1) 03/12/23 02:32 Plt Count 160 10^3/cmm (130-400) 03/12/23 02:32 MPV 10.4 fL (7.4-10.4) 03/12/23 02:32 Neut % (Auto) 69.9 % 03/12/23 02:32 Lymph % (Auto) 21.1 % 03/12/23 02:32 [place] % (Auto) 6.7 % 03/12/23 02:32 Eos % (Auto) 1.9 % 03/12/23 02:32 Baso % (Auto) 0.2 % 03/12/23 02:32 Neut # (Auto) 5.97 10^3/uL (1.8-7.7) 03/12/23 02:32 Lymph # (Auto) 1.8 10^3/uL (0.8-4.8) 03/12/23 02:32 [place] # (Auto) 0.6 10^3/uL (0.2-0.9) 03/12/23 02:32 Eos # (Auto) 0.2 10^3/uL (0.0-0.8) 03/12/23 02:32 Baso # (Auto) 0.0 10^3/uL (0.0-0.1) 03/12/23 02:32 Nucleated RBC % (auto) 0 % 03/12/23 02:32 Nucleated RBCs # 0.0 /100WBC 03/12/23 02:32 PT 13.70 SECONDS (12.1-14.9) 03/09/23 08:50 INR 1.02 (0.8-1.2) 03/09/23 08:50 Sodium 136 mmol/L (136-145) 03/12/23 02:32 Potassium 3.3 mmol/L (3.5-5.1) L 03/12/23 02:32 Chloride 101 mmol/L (98-107) 03/12/23 02:32 Carbon Dioxide 26 mmol/L (22-29) 03/12/23 02:32 Anion Gap 12.3 (5-19) 03/12/23 02:32 BUN 7 mg/dL (8-23) L 03/12/23 02:32 Creatinine 0.9 mg/dL (0.7-1.2) 03/12/23 02:32 GFR Calculation 85.2 mL/min (90-130) L 03/12/23 02:32 Glucose 102 mg/dL (65-115) 03/12/23 02:32 Estimat Average Glucose 123 03/09/23 08:50 Hemoglobin A1c 5.9 % (4.0-6.0) 03/09/23 08:50 Calculated Osmolality 280 mOsm/kg (285-295) L 03/12/23 02:32 Calcium 8.4 mg/dL (8.5-10.5) L 03/12/23 02:32 Magnesium 1.8 mg/dL (1.7-2.3) 03/12/23 02:32 Total Bilirubin 0.3 mg/dL (0.15-1.2) 03/11/23 03:26 AST 32 U/L (0-40) 03/11/23 03:26 ALT 24 U/L (0-41) 03/11/23 03:26 Alkaline Phosphatase 67 U/L (40-130) 03/11/23 03:26 Troponin T Baseline 28 ng/L (0-15) H 03/09/23 08:50 Troponin T 120 Minute 24.10 ng/L (0-15) H 03/09/23 10:46 Delta Troponin T -3.90 ABS# (0-10) L 03/09/23 10:46 Troponin T Hi Sens 6Hr 21.98 ng/L (0-15) H 03/09/23 15:00 Troponin T Hi Sens 6Hr Delta -6.02 ng/L (0-12) L 03/09/23 15:00 Total Protein 6.7 g/dL (6.6-8.7) 03/11/23 03:26 Albumin 3.8 g/dL (3.5-5.2) 03/11/23 03:26 Globulin 2.9 g/dL (1.3-4.6) 03/11/23 03:26 TSH 1.49 uIU/mL (0.27-4.20) 03/09/23 08:50 Ethyl Alcohol < 10 mg/dL (0-10) 03/09/23 08:50 Vitals Last Vital Signs Temp 98.7 F 03/12/23 00:00 Pulse 128 H 03/12/23 05:59 Resp 15 03/12/23 04:00 BP 140/76 07/09/23 04:00 Pulse Ox 98 03/12/23 04:00 O2 Del Method Room Air 03/12/23 04:00 Discharge Plan Discharge Patient Disposition: Home Condition: Stable Prescriptions: New multivitamin with folic acid [Thera] 400 mcg Tablet 1 tab PO DAILY 30 Days Qty: 30 0RF Eliquis 5 mg Tablet 5 mg PO BID@0900,2100 30 Days Qty: 60 0RF metoprolol tartrate 50 mg tablet 50 mg PO BID 30 Days Qty: 60 0RF thiamine mononitrate (vit B1) [Vitamin B-1 (mononitrate)] 100 mg Tablet 100 mg PO DAILY 30 Days Qty: 30 0RF magnesium L-lactate [Magtab] 84 mg Tablet Extended Release 84 mg PO DAILY 30 Days Qty: 30 0RF Continued Aspir-81 81 mg Tablet,Delayed Release (Dr/Ec) 81 mg PO DAILY vitamin E 268 mg (400 unit) Capsule 268 mg PO DAILY Vitamin D3 25 mcg (1,000 unit) Tablet,Chewable 25 mcg PO DAILY Changed sotalol 80 mg tablet 80 mg PO Q12H 30 Days Qty: 60 0RF Discharge Orders: Discharge Order (Routine); Ordered 03/12/23 Ordered By: Arcadio Honeycutt Referrals: [facility] [Other] (? Follow up as a walk in at [facility], walk in hours are Monday-Monday from 7:30AM-3:00PM, first come, first seen. Once you do this assessment you will be referred for appropriate services.) [facility] [Other] (7 days/week 8am-6pm....Can call or walk- in.) Bethany Galloway [employer] [Nurse Practitioner] - 4-7 days (If you have not heard from the clinic in 24-48 hours please call to schedule you an appointment. ) Discharge Diet: Cardiac Discharge Activity: Use walker/crutches as instructed Patient Instructions: A-fib (Atrial Fibrillation) (DC), Abuse of Alcohol (DC), Opioid Safety Activity Restrictions/Additional Instructions: - If you have any chest pain or palpitations please go to emergency room -Please see your cardiac wellness health coach soon as you can in the next 24 to 48 hours -Please abstain from alcohol consumption Discharge Attestations Time Spent in Discharge Care*: greater than 30 min Quality Metrics Clinical Quality Measures [ No reported AMI, CVA or VTE this stay] Coding Level of Care Code 41559 Total time (in minutes) for Discharge: 45 Diagnoses Hyperglycemia R73.9 Atrial fibrillation with RVR I48.91 Alcohol withdrawal F10.939
[2023-03-12] MEDS: hyDROXYzine 25 mg Capsule PO (12:19)
[2023-03-12] MEDS: fluoxetine 20 mg Capsule PO (12:19)
--- NOTE | 2023-03-12 13:08 | PC.NURSE ---
Discharge Note Patient discharged to home via taxi accompanied by self. Discharge instructions reviewed with patient and/or customer counter representative. Mobile pharmacy medications and/or prescriptions provided. Belongings/home medications returned.
== END 2023-03-12 13:08 | disposition home or self-care (01) | DRG 897 ==
LOC: ER 09:39 → ICU 10:03 → CSU 03-10 18:29
PROVIDERS: Admitting Provider Internal Medicine; Emergency Provider Emergency Medicine; Visit Provider Family Medicine
DX: F10.231 Alcohol dependence with withdrawal delirium (principal); I48.19 Other persistent atrial fibrillation; N17.9 Acute kidney failure, unspecified; Z79.82 Long term (current) use of aspirin; R73.9 Hyperglycemia, unspecified; I10 Essential (primary) hypertension; Z87.891 Personal history of nicotine dependence
CPT/HCPCS: 36415; 71045; 80048; 80053; 80307; 83036; 83735; 84443; 84484; 85025; 85610; 93005; 93306; 96365; 96366; 96372; 96375; 96376; 99285; C9113; J1650; J2060; J3411; J3490; J7030

== ENCOUNTER → 2023-03-16 11:27 | Outpatient (BNVA) | payer BC, SELFPAY | PROVIDERS: PCP Nurse Practitioner Family; Visit Provider Nurse Practitioner Family | DX: N18.9 Chronic kidney disease, unspecified (principal); I48.91 Unspecified atrial fibrillation; F32.4 Major depressive disorder, single episode, in partial remission; F10.20 Alcohol dependence, uncomplicated; Z12.5 Encounter for screening for malignant neoplasm of prostate | CPT/HCPCS: 80053; 80061; G0103 ==